=== PATIENT | female | born 1975 | race Caucasian/White ===

== ENCOUNTER 2020-06-01 12:10 | Observation (INO) ==
[2020-06-01] MEDS ORDERED: Naloxone 0.4 MG/ML INJ IVP PRN (15:14)
[2020-06-01] MEDS ORDERED: Acetaminophen 325 MG TABLET PO PRN (15:56)
[2020-06-01] MEDS: *HR* Heparin 5,000 UNIT/ML VIAL SQ SCH (18:30)
[2020-06-02 03:08] LABS: Hematocrit 38.5 % (35.3-44.9); Hemoglobin 12.3 g/dL (11.5-15.4); Mean Corpuscular HGB Conc 31.9 g/dL (31.6-35.5); Mean Corpuscular Hemoglobin 28.5 pg (28.0-33.3); Mean Corpuscular Volume 89.3 fL (83.0-100.0); Mean Platelet Volume 10.4 fL (9.4-12.4); Platelet Count 251 K/mcL (140-400); Red Blood Count 4.31 M/mcL (3.82-4.97); Red Cell Distribution Width 12.7 % (11.5-14.5)
[2020-06-02 03:19] VITALS: BP 106/74
[2020-06-02 03:27] LABS: BUN/Creatinine Ratio 28 (6-26); Blood Urea Nitrogen 18 mg/dL (6-20); Calcium 8.9 mg/dL (8.6-10.3); Carbon Dioxide 26 mEq/L (23-29); Chloride 105 mEq/L (98-107); Chol/HDL Ratio 2.9 (0-4.9); Cholesterol 161 mg/dL (< 200); Glucose 100 mg/dL (70-105); HDL Cholesterol 56 mg/dL (40-59); LDL Cholesterol,Calculated 93 mg/dL (< 100); Osmolality,Calculated 286 (280-300); Sodium 137 mEq/L (136-145); Triglycerides 60 mg/dL (< 150); eGFR For African Americans > 60 (> 60); eGFR For Non-African Americans > 60 (> 60)
[2020-06-02] MEDS: *HR* Heparin 5,000 UNIT/ML VIAL SQ SCH (05:29)
[2020-06-02] MEDS ORDERED: Regadenoson 0.4 MG/5 ML SYRINGE IVP ONE (08:32)
[2020-06-02] MEDS ORDERED: Aspirin 81 MG TAB.CHEW PO SCH (09:00)
[2020-06-02] MEDS ORDERED: BuPROPion XL (24 HR) 150 MG TABLET PO SCH (09:15)
[2020-06-02] MEDS ORDERED: Loratadine 10 MG TABLET PO SCH (10:15)
== END 2020-06-02 15:18 | disposition home or self-care (01) ==
LOC: 3BNU → SUATTDRO 13:44
PROVIDERS: ADMIT Family Medicine; ATTEND Nurse Practitioner